=== PATIENT | female | born 1980 | race Caucasian/White ===

== ENCOUNTER 2021-09-03 21:05 | Inpatient (IN) | payer MEDICARE ==
[2021-09-03] MEDS ORDERED: Norepinephrine 8 MG/0.9% NS 250 ML ONE (21:12)
[2021-09-03] MEDS ORDERED: Sodium Bicarb 50 MEQ/50 ML Abboject 8.4% SYRINGE ONE (21:55)
[2021-09-03 22:41] LABS: SARS-CoV-2 NAA Rapid Test Not Detected (NotDetected)
[2021-09-03 23:06] LABS: Actual Bicarbonate (HCO3a) 20.4 mEq/L (22-28); Analyzer IN Cardio ER; Base Excess (BEa) -1.4 mEq/L (-2.0 to +3.0); CO2 Tension 26.2 mmHg (35.0-45.0); Calcium, Ionized (arterial) 0.99 mmol/L (1.12-1.30); Carboxyhemoglobin (COHb) 0.3 gm% (0.0-3.0); Hemoglobin (Hb) 11.6 g/dL (12.0-16.0); O2 Tension (PaO2), arterial 312.8 mmHg (80.0-100.0); Potassium - ABG Lab 3.46 mmol/L (3.70-5.30); pH, Arterial 7.51 (7.35-7.45)
[2021-09-03 23:09] LABS: Puncture Site LBA
[2021-09-03] MEDS ORDERED: Azithromycin 500 MG VIAL ONE ×2 (23:10→23:12)
[2021-09-03] MEDS ORDERED: cefTRIAXone\\ROCEPHIN 2 GM VIAL ONE ×2 (23:10→23:12)
[2021-09-03 23:12] LABS: Acetaminophen Less than 6.0 mcg/mL (10.0-30.0); Alcohol Less than 10 mg/dL (Less than 10); Salicylate Less than 8.0 mg/dL (15.0-30.0)
[2021-09-04] MEDS ORDERED: Lorazepam 2 MG/ML VIAL ONE (01:12)
[2021-09-04] MEDS ORDERED: Morphine 4 MG/ML VIAL SLOW IVP PRN (01:53)
[2021-09-04] MEDS ORDERED: Fentanyl CADD 100 ML IV SCH (02:00)
[2021-09-04] MEDS ORDERED: DISCONTINUE PREVIOUS NARCOTIC PAIN MEDICATIONS AND BENZODIAZEPINES FS SCH (02:00)
[2021-09-04] MEDS ORDERED: fentaNYL Citrate-0.9 % NaCl/PF 100 ML IV SCH (02:00)
[2021-09-04] MEDS ORDERED: Propofol BOLUS 1,000 MG/100 ML VIAL IV PRN (02:00)
[2021-09-04] MEDS ORDERED: Ventilator Sedation Protocol 1 EACH FS SCH (02:00)
[2021-09-04] MEDS ORDERED: Propofol 1,000 MG/100 ML VIAL IV PRN (02:00)
[2021-09-04] MEDS ORDERED: Fentanyl BOLUS 250 ML IVPB PRN (02:00)
[2021-09-04] MEDS ORDERED: Morphine 2 MG/ML VIAL SLOW IVP PRN (02:00)
[2021-09-04] MEDS ORDERED: Lorazepam 2 MG/ML VIAL SLOW IVP PRN (02:00)
[2021-09-04 02:23] LABS: Hemoglobin 11.4 g/dL (12.0-16.0); Mean Corpuscular HGB CONC 31.7 g/dL (32.0-36.0); Mean Corpuscular Hemoglobin 22.7 pg (27.0-31.0); Mean Corpuscular Volume 71.4 fL (78.0-98.0); Mean Platelet Volume 10.3 fL (7.4-10.4); Platelet Count 316 thou/uL (130-400); Red Blood Cell (RBC) Count 5.03 mill/uL (4.20-5.40); White Blood Cell (WBC) Count 14.7 thou/uL (4.8-10.8)
[2021-09-04] MEDS: Sodium Chloride 0.9% 1,000 ML IV SCH ×3 (02:30→21:50)
[2021-09-04 02:47] LABS: #Lymphocytes 0.6 thou/uL (1.20-3.40); #Monocytes 1.1 thou/uL (0.11-0.59); %Eosinophils 0.2 % (0.0-10.0); %Monocytes 7.4 % (0.0-10.0); %Neutrophils 88.3 % (42.0-75.0)
[2021-09-04 02:49] LABS: Lactic Acid 2.8 mmol/L (0.5-2.2)
[2021-09-04 02:50] LABS: Microcytosis SLIGHT = 6-15 cells (100X) (0-5/hpf)
[2021-09-04] MEDS ORDERED: VANCOMYCIN 1.25 GM/250 ML BAG 1.25 GM in Premix Bag 1 BAG IVPB SCH (03:08)
[2021-09-04] MEDS ORDERED: Cefepime 2 GM in Sodium Chloride 0.9% 100 ML IVPB SCH (03:08)
[2021-09-04] MEDS ORDERED: Piperacillin/Tazobactam 3.375 GM in Sodium Chloride 0.9% 100 ML IVPB SCH ×2 (03:15→03:45)
[2021-09-04 03:34] LABS: Lactic Acid 2.8 mmol/L (0.5-2.2)
[2021-09-04 03:39] LABS: ALT (SGPT) 982 U/L (8-55); AST (SGOT) 1305 U/L (5-34); Albumin 3.6 g/dL (3.5-5.0); Alkaline Phosphatase 105 U/L (40-110); Anion Gap 18 mmol/L (10-20); BUN (Urea Nitrogen) 18 mg/dL (7.0-18.7); Bilirubin, Total 0.3 mg/dL (0.2-1.2); Calc. Creatinine Clearance 82 mL/min (70-130); Calcium 8.1 mg/dL (7.8-10.44); Carbon Dioxide 23 mmol/L (22-29); Chloride 106 mmol/L (98-107); Globulin 2.8 g/dL (2.4-3.5); Glucose 165 mg/dL (70-105); Magnesium 2.2 mg/dL (1.6-2.6); Protein, Total 6.4 g/dL (6.0-8.3); Sodium 144 mmol/L (136-145)
[2021-09-04] MEDS ORDERED: Norepinephrine 8 MG/0.9% NS 250 ML IVPB SCH (03:45)
[2021-09-04 03:47] LABS: Potassium 2.9 mmol/L (3.5-5.1)
[2021-09-04] MEDS ORDERED: Electrolyte Replacement Protocol 1 EACH FS SCH (04:15)
[2021-09-04] MEDS ORDERED: Vancomycin HCl 1.5 GM in Sodium Chloride 0.9% 250 ML 300 ML IVPB SCH (04:15)
[2021-09-04 04:49] LABS: Amphetamine Not Detected (NotDetected); Barbiturates Screen Not Detected (NotDetected); Benzodiazepine Screen Detected (NotDetected); Cocaine Metabolite Screen Not Detected (NotDetected); Methadone Not Detected (NotDetected); Methamphetamine Not Detected (NotDetected); Opiate Screen Detected (NotDetected); Oxycodone Screen Not Detected (NotDetected); Phencyclidine (PCP) Not Detected (NotDetected); THC/Cannabinoid Screen Not Detected (NotDetected); Tricyclic Screen Not Detected (NotDetected)
[2021-09-04] MEDS: Potassium Chloride 40 MEQ in Premix Bag 1 BAG IVPB SCH ×2 (05:02→08:53)
[2021-09-04 07:24] LABS: Actual Bicarbonate (HCO3a) 24.3 mEq/L (22-28); Base Excess (BEa) 1.5 mEq/L (-2.0 to +3.0); CO2 Tension 31.9 mmHg (35.0-45.0); Calcium, Ionized (arterial) 1.01 mmol/L (1.12-1.30); Carboxyhemoglobin (COHb) 0.3 gm% (0.0-3.0); O2 Tension (PaO2), arterial 163.8 mmHg (80.0-100.0); Potassium - ABG Lab 2.67 mmol/L (3.70-5.30)
[2021-09-04 07:57] LABS: ALV-art Gradient 81.525 mmHg (0-20); Puncture Site RRA
[2021-09-04] MEDS: Piperacillin/Tazobactam 3.375 GM in Sodium Chloride 0.9% 100 ML IVPB SCH ×2 (08:52→16:07)
[2021-09-04] MEDS ORDERED: FLU VACC QS2021-22(6MOS UP)/PF 60 MCG/0.5 ML SYRINGE IM ONE (09:00)
[2021-09-04] MEDS: Acetaminophen 325 MG TAB PO PRN (13:44)
[2021-09-04] MEDS: Vancomycin 1 GM in Premix Bag 1 BAG IVPB SCH (17:39)
[2021-09-04 20:19] LABS: #Lymphocytes 0.6 thou/uL (1.20-3.40); #Neutrophils 11.5 thou/uL (1.40-6.50); %Basophils 0.1 % (0.0-1.0); %Eosinophils 0.1 % (0.0-10.0); %Lymphocytes 4.7 % (21.0-51.0); %Monocytes 7.3 % (0.0-10.0); %Neutrophils 87.8 % (42.0-75.0); Hemoglobin 8.6 g/dL (12.0-16.0); Mean Corpuscular HGB CONC 30.5 g/dL (32.0-36.0); Mean Corpuscular Hemoglobin 22.1 pg (27.0-31.0); Mean Corpuscular Volume 72.3 fL (78.0-98.0); Platelet Count 245 thou/uL (130-400); RBC Distribution Width 16.8 % (11.5-14.5); Red Blood Cell (RBC) Count 3.89 mill/uL (4.20-5.40); White Blood Cell (WBC) Count 13.1 thou/uL (4.8-10.8)
[2021-09-04 20:40] LABS: Troponin I 0.024 ng/mL (< 0.028)
[2021-09-04 20:49] LABS: ALT (SGPT) 559 U/L (8-55); AST (SGOT) 448 U/L (5-34); Alkaline Phosphatase 61 U/L (40-110); Anion Gap 12 mmol/L (10-20); BUN (Urea Nitrogen) 22 mg/dL (7.0-18.7); Bilirubin, Total 0.3 mg/dL (0.2-1.2); Calc. Creatinine Clearance 88 mL/min (70-130); Calcium 6.7 mg/dL (7.8-10.44); Carbon Dioxide 22 mmol/L (22-29); Chloride 115 mmol/L (98-107); Globulin 2.2 g/dL (2.4-3.5); Glucose 126 mg/dL (70-105); Magnesium 1.7 mg/dL (1.6-2.6); Potassium 3.2 mmol/L (3.5-5.1); Protein, Total 5.2 g/dL (6.0-8.3); Sodium 146 mmol/L (136-145)
[2021-09-04 21:00] LABS: Anisocytosis SLIGHT = 6-15 cells (100X) (0-5/hpf); Elliptocytes SLIGHT = 2-5 cells (100X) (0-1/hpf); MDiff Complete? YES
[2021-09-04] MEDS ORDERED: Azithromycin 500 MG in Sodium Chloride 0.9% 250 ML 250 ML IVPB SCH (21:00)
[2021-09-04] MEDS ORDERED: Magnesium 2 GM/50 ML 2 GM in Premix Bag 1 BAG IVPB SCH (21:30)
[2021-09-04] MEDS: Famotidine/PF 20 mg/2ml Vial SLOW IVP SCH (21:49)
[2021-09-04] MEDS ORDERED: Sodium Chloride 0.9% 500 ML IVPB SCH (23:00)
[2021-09-04] MEDS ORDERED: Potassium Chloride 40 MEQ in Premix Bag 1 BAG IVPB SCH (23:30)
[2021-09-05] MEDS: Piperacillin/Tazobactam 3.375 GM in Sodium Chloride 0.9% 100 ML IVPB SCH ×3 (01:38→16:45)
[2021-09-05] MEDS: Acetaminophen 325 MG TAB PO PRN ×2 (01:39→11:20)
[2021-09-05] MEDS: Vancomycin 1 GM in Premix Bag 1 BAG IVPB SCH ×2 (03:59→16:44)
[2021-09-05 04:36] LABS: Anion Gap 12 mmol/L (10-20); BUN (Urea Nitrogen) 17 mg/dL (7.0-18.7); Calc. Creatinine Clearance 100 mL/min (70-130); Calcium 6.9 mg/dL (7.8-10.44); Carbon Dioxide 21 mmol/L (22-29); Chloride 118 mmol/L (98-107); Glucose 128 mg/dL (70-105); Potassium 3.9 mmol/L (3.5-5.1); Sodium 147 mmol/L (136-145)
[2021-09-05 05:01] LABS: Band 21 % (5-11); Elliptocytes SLIGHT = 2-5 cells (100X) (0-1/hpf); Hemoglobin 8.4 g/dL (12.0-16.0); Lymphocytes 10 % (21-51); MDiff Complete? YES; Mean Corpuscular HGB CONC 29.7 g/dL (32.0-36.0); Mean Corpuscular Hemoglobin 21.6 pg (27.0-31.0); Mean Corpuscular Volume 72.5 fL (78.0-98.0); Mean Platelet Volume 10.5 fL (7.4-10.4); Monocytes 4 % (0-10); Neutrophil 65 % (42-75); Platelet Count 246 thou/uL (130-400); RBC Distribution Width 17.2 % (11.5-14.5); Red Blood Cell (RBC) Count 3.88 mill/uL (4.20-5.40); White Blood Cell (WBC) Count 14.6 thou/uL (4.8-10.8)
[2021-09-05] MEDS ORDERED: Metoprolol Tartrate 5 MG/5 ML VIAL IVP SCH (05:45)
[2021-09-05] MEDS ORDERED: Enoxaparin Sodium 40 MG/0.4 ML SYRINGE SC SCH (05:45)
[2021-09-05] MEDS: Sodium Chloride 0.9% 1,000 ML IV SCH ×3 (05:55→20:05)
[2021-09-05] MEDS: Enoxaparin Sodium 40 MG/0.4 ML SYRINGE SC SCH (06:09)
[2021-09-05] MEDS: Famotidine/PF 20 mg/2ml Vial SLOW IVP SCH ×2 (08:43→20:16)
[2021-09-05 17:19] LABS: Vancomycin, Trough 8.3 ug/mL
[2021-09-06] MEDS: Piperacillin/Tazobactam 3.375 GM in Sodium Chloride 0.9% 100 ML IVPB SCH ×3 (00:44→15:48)
[2021-09-06 03:41] LABS: Mean Corpuscular HGB CONC 28.7 g/dL (32.0-36.0); Mean Corpuscular Hemoglobin 21.2 pg (27.0-31.0); Mean Platelet Volume 10.1 fL (7.4-10.4); Platelet Count 204 thou/uL (130-400); RBC Distribution Width 17.4 % (11.5-14.5); Red Blood Cell (RBC) Count 3.75 mill/uL (4.20-5.40); White Blood Cell (WBC) Count 14.2 thou/uL (4.8-10.8)
[2021-09-06 03:46] LABS: Anion Gap 11 mmol/L (10-20); BUN (Urea Nitrogen) 11 mg/dL (7.0-18.7); Calc. Creatinine Clearance 113 mL/min (70-130); Calcium 7.7 mg/dL (7.8-10.44); Carbon Dioxide 20 mmol/L (22-29); Chloride 117 mmol/L (98-107); Glucose 121 mg/dL (70-105); Sodium 144 mmol/L (136-145)
[2021-09-06 04:24] LABS: Band 12 % (5-11); Eosinophils 1 % (0-10); Hypochromia SLIGHT = 6-15 cells (100X) (0-5/hpf); Lymphocytes 6 % (21-51); MDiff Complete? YES; Microcytosis SLIGHT = 6-15 cells (100X) (0-5/hpf); Monocytes 4 % (0-10); Neutrophil 77 % (42-75)
[2021-09-06] MEDS: Sodium Chloride 0.9% 1,000 ML IV SCH ×2 (04:32→15:48)
[2021-09-06] MEDS: Vancomycin HCl 1.75 GM in Sodium Chloride 0.9% 500 ML IVPB SCH ×2 (05:27→16:47)
[2021-09-06 07:20] LABS: Actual Bicarbonate (HCO3a) 22.5 mEq/L (22-28); Base Excess (BEa) -1.5 mEq/L (-2.0 to +3.0); CO2 Tension 34.7 mmHg (35.0-45.0); Carboxyhemoglobin (COHb) 0.6 gm% (0.0-3.0); Hemoglobin (Hb) 8.7 g/dL (12.0-16.0); Potassium - ABG Lab 3.97 mmol/L (3.70-5.30); pH, Arterial 7.43 (7.35-7.45)
[2021-09-06 07:22] LABS: Puncture Site LRA
[2021-09-06 07:23] LABS: ALV-art Gradient 27.525 mmHg (0-20)
[2021-09-06] MEDS: Famotidine/PF 20 mg/2ml Vial SLOW IVP SCH ×2 (08:44→21:12)
[2021-09-06] MEDS: Enoxaparin Sodium 40 MG/0.4 ML SYRINGE SC SCH (08:44)
[2021-09-06] MEDS ORDERED: Magnevist 469MG/ML 20 ML VIAL ONE (12:30)
[2021-09-06 13:48] VITALS: BMI 24.5
[2021-09-06] MEDS ORDERED: Norepinephrine 8 MG/0.9% NS 250 ML ONE (22:02)
[2021-09-06] MEDS ORDERED: Hydrocortisone Sod Succ/PF 500 mg/4 ml Vial SLOW IVP SCH (23:45)
[2021-09-07 00:10] LABS: Actual Bicarbonate (HCO3a) 22.4 mEq/L (22-28); Base Excess (BEa) -3.3 mEq/L (-2.0 to +3.0); Calcium, Ionized (arterial) 1.16 mmol/L (1.12-1.30); Carboxyhemoglobin (COHb) 0.4 gm% (0.0-3.0); Hemoglobin (Hb) 9.4 g/dL (12.0-16.0); O2 Tension (PaO2), arterial 140.3 mmHg (80.0-100.0); Potassium - ABG Lab 4.46 mmol/L (3.70-5.30); pH, Arterial 7.33 (7.35-7.45)
[2021-09-07 00:11] LABS: Puncture Site LRA
[2021-09-07 00:16] LABS: #Lymphocytes 0.8 thou/uL (1.20-3.40); #Monocytes 0.8 thou/uL (0.11-0.59); #Neutrophils 11.4 thou/uL (1.40-6.50); %Basophils 0.2 % (0.0-1.0); %Eosinophils 0.1 % (0.0-10.0); %Monocytes 6.1 % (0.0-10.0); %Neutrophils 87.7 % (42.0-75.0); Hemoglobin 8.2 g/dL (12.0-16.0); Mean Corpuscular HGB CONC 31.1 g/dL (32.0-36.0); Mean Corpuscular Hemoglobin 22.8 pg (27.0-31.0); Mean Corpuscular Volume 73.1 fL (78.0-98.0); Mean Platelet Volume 9.9 fL (7.4-10.4); Platelet Count 217 thou/uL (130-400); RBC Distribution Width 17.2 % (11.5-14.5); Red Blood Cell (RBC) Count 3.61 mill/uL (4.20-5.40)
[2021-09-07 00:24] LABS: Hemoglobin A1c 5.1 % (4.0-6.0)
[2021-09-07 00:27] LABS: Prothrombin Time 13.4 sec (12.0-14.7)
[2021-09-07 00:28] LABS: PTT 34.5 sec (22.9-36.1)
[2021-09-07] MEDS: Piperacillin/Tazobactam 3.375 GM in Sodium Chloride 0.9% 100 ML IVPB SCH ×2 (00:29→09:33)
[2021-09-07] MEDS: Sodium Chloride 0.9% 1,000 ML IV SCH (00:40)
[2021-09-07 01:00] LABS: ALT (SGPT) 218 U/L (8-55); AST (SGOT) 93 U/L (5-34); Albumin 2.7 g/dL (3.5-5.0); Alkaline Phosphatase 73 U/L (40-110); Anion Gap 11 mmol/L (10-20); BUN (Urea Nitrogen) 10 mg/dL (7.0-18.7); Bilirubin, Direct 0.1 mg/dL (0.1-0.3); Bilirubin, Total 0.3 mg/dL (0.2-1.2); CK (CPK) 128 U/L (29-168); Calc. Creatinine Clearance 125 mL/min (70-130); Calcium 7.9 mg/dL (7.8-10.44); Carbon Dioxide 22 mmol/L (22-29); Chloride 116 mmol/L (98-107); Globulin 2.6 g/dL (2.4-3.5); Glucose 132 mg/dL (70-105); Lipase 23 U/L (8-78); Phosphorus 3.5 mg/dL (2.3-4.7); Potassium 4.4 mmol/L (3.5-5.1); Protein, Total 5.3 g/dL (6.0-8.3); Sodium 145 mmol/L (136-145)
[2021-09-07 01:11] LABS: CKMB 10.5 ng/mL (0-6.6); Troponin I 1.046 ng/mL (< 0.028)
[2021-09-07 01:23] LABS: Bacteria/HPF None Seen HPF (None Seen); Squamous Epithelial None Seen HPF (0-3); WBC/HPF 0-3 HPF (0-3)
[2021-09-07] MEDS: Albuterol Sulfate 2.5 mg/3 ml Neb NEB SCH ×3 (02:17→11:34)
[2021-09-07 02:19] VITALS: BP 83/58
[2021-09-07] MEDS ORDERED: Albumin 25% 25 GM/100 ML BOT IVPB SCH (02:45)
[2021-09-07] MEDS: Sodium Chloride 0.45% 1,000 ML IV SCH ×2 (02:52→09:50)
[2021-09-07 05:25] LABS: Actual Bicarbonate (HCO3a) 22.8 mEq/L (22-28); CO2 Tension 44.7 mmHg (35.0-45.0); Calcium, Ionized (arterial) 1.13 mmol/L (1.12-1.30); Carboxyhemoglobin (COHb) 0.6 gm% (0.0-3.0); Hemoglobin (Hb) 6.9 g/dL (12.0-16.0); Potassium - ABG Lab 4.17 mmol/L (3.70-5.30); pH, Arterial 7.33 (7.35-7.45)
[2021-09-07 05:26] LABS: ALV-art Gradient 36.025 mmHg (0-20); O2 Tension (PaO2), arterial 621.1 mmHg (80.0-100.0); Puncture Site RBA
[2021-09-07 05:44] LABS: Bilirubin Negative (Negative); Blood, Urine Large (Negative); Glucose, Urine (Dipstick) >=1000 mg/dL (Negative); Ketone, Urine Negative (Negative); Leukocyte Negative (Negative); Nitrite Negative (Negative); Protein, Urine (Dipstick) Negative (Neg-Trace); Urobilinogen 0.2 mg/dL (Less than 2); pH, Urine 5.5 (5.0-9.0)
[2021-09-07 05:57] LABS: Clarity Clear (Clear)
[2021-09-07] MEDS ORDERED: Hydrocortisone Sod Succ/PF 100 mg/2 ml Vial IVP SCH (06:00)
[2021-09-07 06:02] LABS: Hemoglobin 6.7 g/dL (12.0-16.0); Mean Corpuscular HGB CONC 29.9 g/dL (32.0-36.0); Mean Corpuscular Hemoglobin 22.2 pg (27.0-31.0); Mean Corpuscular Volume 74.3 fL (78.0-98.0); Platelet Count 151 thou/uL (130-400); RBC Distribution Width 17.3 % (11.5-14.5); Red Blood Cell (RBC) Count 3.01 mill/uL (4.20-5.40); Vancomycin, Trough 13.7 ug/mL; White Blood Cell (WBC) Count 6.1 thou/uL (4.8-10.8)
[2021-09-07 06:05] LABS: INR-International Normal Ratio 1.1; Prothrombin Time 14.5 sec (12.0-14.7)
[2021-09-07 06:06] LABS: PTT 36.9 sec (22.9-36.1)
[2021-09-07 06:11] LABS: Anion Gap 12 mmol/L (10-20); BUN (Urea Nitrogen) 11 mg/dL (7.0-18.7); Calc. Creatinine Clearance 119 mL/min (70-130); Carbon Dioxide 21 mmol/L (22-29); Chloride 122 mmol/L (98-107); Glucose 189 mg/dL (70-105); Potassium 4.2 mmol/L (3.5-5.1); Sodium 151 mmol/L (136-145)
[2021-09-07 06:17] LABS: WBC/HPF 0-3 HPF (0-3)
[2021-09-07 06:18] LABS: Bacteria/HPF 1+ HPF (None Seen); Yeast-Budding Rare HPF (None Seen); Yeast-Hyphae Rare HPF (None Seen)
[2021-09-07 06:30] LABS: CKMB 7.8 ng/mL (0-6.6); Critical Call CKMB RESULT DECREASING; Critical Call Chem Troponin I RESULT DECREASING; Troponin I 0.473 ng/mL (< 0.028)
[2021-09-07 06:31] LABS: ALT (SGPT) 160 U/L (8-55); AST (SGOT) 56 U/L (5-34); Albumin 3.6 g/dL (3.5-5.0); Alkaline Phosphatase 61 U/L (40-110); Anion Gap 9 mmol/L (10-20); BUN (Urea Nitrogen) 11 mg/dL (7.0-18.7); Bilirubin, Direct 0.1 mg/dL (0.1-0.3); Bilirubin, Total 0.3 mg/dL (0.2-1.2); CK (CPK) 86 U/L (29-168); Calc. Creatinine Clearance 119 mL/min (70-130); Calcium 7.8 mg/dL (7.8-10.44); Carbon Dioxide 24 mmol/L (22-29); Chloride 122 mmol/L (98-107); Globulin 1.7 g/dL (2.4-3.5); Glucose 187 mg/dL (70-105); Lipase 19 U/L (8-78); Magnesium 2.1 mg/dL (1.6-2.6); Phosphorus 2.6 mg/dL (2.3-4.7); Potassium 4.3 mmol/L (3.5-5.1); Protein, Total 5.3 g/dL (6.0-8.3); Sodium 151 mmol/L (136-145)
[2021-09-07] MEDS: Vancomycin HCl 1.75 GM in Sodium Chloride 0.9% 500 ML IVPB SCH (06:43)
[2021-09-07] MEDS ORDERED: Magnesium 2 GM/50 ML 2 GM in Premix Bag 1 BAG IVPB SCH (07:00)
[2021-09-07 07:01] LABS: Anisocytosis SLIGHT = 6-15 cells (100X) (0-5/hpf); Band 8 % (5-11); Elliptocytes SLIGHT = 2-5 cells (100X) (0-1/hpf); Hypochromia MODERATE=16-30 cells (100X) (0-5/hpf); Lymphocytes 1 % (21-51); MDiff Complete? YES; Monocytes 1 % (0-10); Neutrophil 90 % (42-75); Platelet Morphology Comment Appears Adequate; Polychromasia SLIGHT = 2-3 cells (100X) (0-2/hpf); Schistocytes SLIGHT = 2-5 cells (100X) (0-1/hpf)
[2021-09-07] MEDS: Famotidine/PF 20 mg/2ml Vial SLOW IVP SCH (09:33)
[2021-09-07] MEDS: Enoxaparin Sodium 40 MG/0.4 ML SYRINGE SC SCH (09:33)
[2021-09-07 10:42] VITALS: TEMP 97.8
[2021-09-07 11:29] LABS: Actual Bicarbonate (HCO3a) 25.3 mEq/L (22-28); Base Excess (BEa) -4.4 mEq/L (-2.0 to +3.0); Calcium, Ionized (arterial) 1.18 mmol/L (1.12-1.30); Carboxyhemoglobin (COHb) 0.2 gm% (0.0-3.0); Hemoglobin (Hb) 7.5 g/dL (12.0-16.0); Potassium - ABG Lab 3.88 mmol/L (3.70-5.30)
[2021-09-07 11:31] LABS: CO2 Tension 82.3 mmHg (35.0-45.0); O2 Tension (PaO2), arterial 551.5 mmHg (80.0-100.0); pH, Arterial 7.11 (7.35-7.45)
[2021-09-07 11:32] LABS: ALV-art Gradient -155.275 mmHg (0-20); Puncture Site RRA
== END 2021-09-07 11:30 | disposition short-term general hospital (02) | DRG 871 ==
LOC: EDBD 21:05 → ERS 21:05 → CCU 21:27
PROVIDERS: ADMIT Student in an Organized Health Care Education/Training Program; ATTEND Hospitalist
PROC: 3E033XZ Introduction of Vasopressor into Peripheral Vein, Percutaneous Approach (ICD-10-PCS; principal; 2021-09-03)
PROC: 5A1945Z Respiratory Ventilation, 24-96 Consecutive Hours (ICD-10-PCS; 2021-09-03)
PROC: 06HY33Z Insertion of Infusion Device into Lower Vein, Percutaneous Approach (ICD-10-PCS; 2021-09-04)
PROC: 0B9J8ZX Drainage of Left Lower Lung Lobe, Via Natural or Artificial Opening Endoscopic, Diagnostic (ICD-10-PCS; 2021-09-07)
PROC: 0B9D8ZX Drainage of Right Middle Lung Lobe, Via Natural or Artificial Opening Endoscopic, Diagnostic (ICD-10-PCS; 2021-09-07)
PROC: 0B9H8ZX Drainage of Lung Lingula, Via Natural or Artificial Opening Endoscopic, Diagnostic (ICD-10-PCS; 2021-09-07)
PROC: 0B9F8ZX Drainage of Right Lower Lung Lobe, Via Natural or Artificial Opening Endoscopic, Diagnostic (ICD-10-PCS; 2021-09-07)
PROC: 03HY32Z Insertion of Monitoring Device into Upper Artery, Percutaneous Approach (ICD-10-PCS; 2021-09-07)
DX: A41.9 Sepsis, unspecified organism (principal); I46.9 Cardiac arrest, cause unspecified; J96.01 Acute respiratory failure with hypoxia; J18.9 Pneumonia, unspecified organism; G93.5 Compression of brain; E87.2 Acidosis; G93.1 Anoxic brain damage, not elsewhere classified; Q79.60 Ehlers-Danlos syndrome, unspecified; R65.20 Severe sepsis without septic shock; Z51.5 Encounter for palliative care; T41.291A Poisoning by other general anesthetics, accidental (unintentional), initial encounter; Z20.822 Contact with and (suspected) exposure to COVID-19; I48.91 Unspecified atrial fibrillation; G43.909 Migraine, unspecified, not intractable, without status migrainosus; F41.9 Anxiety disorder, unspecified; G93.89 Other specified disorders of brain; I95.89 Other hypotension; Z78.1 Physical restraint status; Z98.890 Other specified postprocedural states; Z98.84 Bariatric surgery status; Z79.899 Other long term (current) drug therapy
CPT/HCPCS: 36415; 36416; 36556; 36600; 70450; 70553; 71045; 71275; 74018; 74177; 80048; 80053; 80202; 80306; 80307; 81001; 81015; 82140; 82150; 82248; 82550; 82553; 82805; 83036; 83605; 83690; 83735; 84100; 84484; 85007; 85025; 85027; 85384; 85610; 85730; 87040; 87086; 93005; 93010; 93306; 93970; 94002; 94003; 94640; 95712; 95819; 95957; 96365; 96366; 96368; A9579; J0456; J0696; J1650; J1720; J2060; J2270; J2543; J3370; J3475; J3480; J3490; J7030; J7050; J7611; P9047; S0028; U0002

== ENCOUNTER 2021-09-07 11:30 | Day surgery (SDC) | payer OTHER ==
[2021-09-07 14:04] VITALS: BMI 22.5
[2021-09-07 15:40] LABS: Lactic Acid 1.8 mmol/L (0.5-2.2)
[2021-09-07 15:55] LABS: CKMB 5.4 ng/mL (0-6.6); Troponin I 0.217 ng/mL (< 0.028)
[2021-09-07 16:00] LABS: Hemoglobin A1c 5.9 % (4.0-6.0)
[2021-09-07 16:04] LABS: ALT (SGPT) 140 U/L (8-55); AST (SGOT) 41 U/L (5-34); Albumin 3.3 g/dL (3.5-5.0); Alkaline Phosphatase 62 U/L (40-110); Anion Gap 11 mmol/L (10-20); BUN (Urea Nitrogen) 10 mg/dL (7.0-18.7); Bilirubin, Direct 0.1 mg/dL (0.1-0.3); Bilirubin, Total 0.2 mg/dL (0.2-1.2); CK (CPK) 65 U/L (29-168); Calc. Creatinine Clearance 118 mL/min (70-130); Calcium 7.7 mg/dL (7.8-10.44); Carbon Dioxide 21 mmol/L (22-29); Chloride 121 mmol/L (98-107); Globulin 1.7 g/dL (2.4-3.5); Glucose 170 mg/dL (70-105); Lipase 18 U/L (8-78); Magnesium 2.1 mg/dL (1.6-2.6); Phosphorus 2.2 mg/dL (2.3-4.7); Sodium 149 mmol/L (136-145)
[2021-09-07 16:16] LABS: #Lymphocytes 0.3 thou/uL (1.20-3.40); #Monocytes 0.3 thou/uL (0.11-0.59); #Neutrophils 5.1 thou/uL (1.40-6.50); %Lymphocytes 5.4 % (21.0-51.0); %Monocytes 4.8 % (0.0-10.0); %Neutrophils 89.8 % (42.0-75.0); Mean Corpuscular HGB CONC 29.7 g/dL (32.0-36.0); Mean Corpuscular Hemoglobin 21.8 pg (27.0-31.0); Mean Corpuscular Volume 73.7 fL (78.0-98.0); Mean Platelet Volume 10.4 fL (7.4-10.4); Platelet Count 144 thou/uL (130-400); RBC Distribution Width 17.1 % (11.5-14.5); Red Blood Cell (RBC) Count 2.76 mill/uL (4.20-5.40); White Blood Cell (WBC) Count 5.7 thou/uL (4.8-10.8)
[2021-09-07 16:28] LABS: Prothrombin Time 13.6 sec (12.0-14.7)
[2021-09-07 16:29] LABS: PTT 30.4 sec (22.9-36.1)
[2021-09-07] MEDS ORDERED: Iopamidol 370 76% 100 ML VIAL ONE (16:30)
[2021-09-07] MEDS ORDERED: Refresh Lacri-lube Opth Oint 7 GM TUBE FS SCH (16:45)
[2021-09-07] MEDS ORDERED: Hydrocortisone Sod Succ/PF 500 mg/4 ml Vial SLOW IVP SCH (17:00)
[2021-09-07] MEDS ORDERED: Vasopressin 20 UNIT, Admixture Fee 1 EACH in Sodium Chloride 0.9% 50 ML IV SCH (17:00)
[2021-09-07] MEDS ORDERED: Phenylephrine 40 MG in Sodium Chloride 0.9% 250 ML 250 ML IVPB SCH (17:00)
[2021-09-07] MEDS ORDERED: Piperacillin/Tazobactam 3.375 GM in Sodium Chloride 0.9% 100 ML IVPB SCH (17:00)
[2021-09-07 17:26] LABS: Actual Bicarbonate (HCO3a) 23.7 mEq/L (22-28); Base Excess (BEa) 0.1 mEq/L (-2.0 to +3.0); CO2 Tension 33.2 mmHg (35.0-45.0); Calcium, Ionized (arterial) 1.15 mmol/L (1.12-1.30); Carboxyhemoglobin (COHb) 0.3 gm% (0.0-3.0); Hemoglobin (Hb) 6.3 g/dL (12.0-16.0); Potassium - ABG Lab 3.61 mmol/L (3.70-5.30); pH, Arterial 7.47 (7.35-7.45)
[2021-09-07 17:27] LABS: Puncture Site Arterial Line
[2021-09-07] MEDS: Phytonadione 10 MG/ML AMP SLOW IVP SCH ×2 (17:38→20:12)
[2021-09-07] MEDS: Albuterol Sulfate 2.5 mg/0.5 ml Neb NEB SCH ×2 (18:16→21:38)
[2021-09-07 18:23] LABS: #Lymphocytes 0.4 thou/uL (1.20-3.40); #Monocytes 0.3 thou/uL (0.11-0.59); #Neutrophils 4.4 thou/uL (1.40-6.50); %Lymphocytes 7.6 % (21.0-51.0); %Neutrophils 86.4 % (42.0-75.0); Hemoglobin 5.9 g/dL (12.0-16.0); Mean Corpuscular HGB CONC 29.4 g/dL (32.0-36.0); Mean Corpuscular Hemoglobin 21.5 pg (27.0-31.0); Mean Corpuscular Volume 73.1 fL (78.0-98.0); Mean Platelet Volume 10.4 fL (7.4-10.4); Platelet Count 128 thou/uL (130-400); RBC Distribution Width 17.4 % (11.5-14.5); Red Blood Cell (RBC) Count 2.74 mill/uL (4.20-5.40); White Blood Cell (WBC) Count 5.1 thou/uL (4.8-10.8)
[2021-09-07 18:27] LABS: INR-International Normal Ratio 1.1; Prothrombin Time 13.9 sec (12.0-14.7)
[2021-09-07 18:28] LABS: PTT 33.8 sec (22.9-36.1)
[2021-09-07 18:35] LABS: Lactic Acid 0.9 mmol/L (0.5-2.2)
[2021-09-07 18:44] LABS: CKMB 5.2 ng/mL (0-6.6); Troponin I 0.211 ng/mL (< 0.028)
[2021-09-07 18:54] LABS: ALT (SGPT) 135 U/L (8-55); AST (SGOT) 36 U/L (5-34); Albumin 3.2 g/dL (3.5-5.0); Alkaline Phosphatase 60 U/L (40-110); Anion Gap 14 mmol/L (10-20); BUN (Urea Nitrogen) 10 mg/dL (7.0-18.7); Bilirubin, Direct 0.1 mg/dL (0.1-0.3); Bilirubin, Total 0.2 mg/dL (0.2-1.2); CK (CPK) 58 U/L (29-168); Calc. Creatinine Clearance 118 mL/min (70-130); Calcium 8.3 mg/dL (7.8-10.44); Carbon Dioxide 19 mmol/L (22-29); Chloride 117 mmol/L (98-107); Glucose 155 mg/dL (70-105); Lipase 17 U/L (8-78); Magnesium 2.1 mg/dL (1.6-2.6); Potassium 3.5 mmol/L (3.5-5.1); Protein, Total 5.2 g/dL (6.0-8.3); Sodium 146 mmol/L (136-145)
[2021-09-07 19:03] LABS: Phosphorus 1.8 mg/dL (2.3-4.7)
[2021-09-07] MEDS ORDERED: Potassium Phosphate 20 MMOL in Sodium Chloride 0.9% 250 ML 250 ML IVPB SCH (20:00)
[2021-09-07] MEDS ORDERED: Lactated Ringer's 1,000 ML IV SCH (21:00)
[2021-09-07] MEDS: Piperacillin/Tazobactam 3.375 GM in Sodium Chloride 0.9% 100 ML IVPB SCH (21:16)
[2021-09-07 21:52] LABS: Bacteria/HPF None Seen HPF (None Seen); Squamous Epithelial None Seen HPF (0-3); WBC/HPF None Seen HPF (0-3)
[2021-09-07 21:58] LABS: Yeast-Hyphae 2+ HPF (None Seen)
[2021-09-07 22:00] LABS: Yeast-Budding 3+ HPF (None Seen)
[2021-09-08 00:03] LABS: Bilirubin Negative (Negative); Blood, Urine Trace (Negative); Clarity Clear (Clear); Glucose, Urine (Dipstick) 250 mg/dL (Negative); Ketone, Urine Negative (Negative); Leukocyte Negative (Negative); Nitrite Negative (Negative); Protein, Urine (Dipstick) Negative (Neg-Trace); Specific Gravity, Urine 1.015 (1.005-1.030); Urobilinogen 0.2 mg/dL (Less than 2); pH, Urine 6.5 (5.0-9.0)
[2021-09-08 00:09] LABS: #Lymphocytes 0.7 thou/uL (1.20-3.40); #Monocytes 0.7 thou/uL (0.11-0.59); #Neutrophils 7.1 thou/uL (1.40-6.50); %Basophils 0.5 % (0.0-1.0); %Lymphocytes 8.5 % (21.0-51.0); %Monocytes 7.9 % (0.0-10.0); %Neutrophils 83.1 % (42.0-75.0); Hemoglobin 7.6 g/dL (12.0-16.0); Mean Corpuscular HGB CONC 30.5 g/dL (32.0-36.0); Mean Corpuscular Volume 75.4 fL (78.0-98.0); Mean Platelet Volume 10.9 fL (7.4-10.4); Platelet Count 128 thou/uL (130-400); RBC Distribution Width 18.9 % (11.5-14.5); Red Blood Cell (RBC) Count 3.31 mill/uL (4.20-5.40); White Blood Cell (WBC) Count 8.5 thou/uL (4.8-10.8)
[2021-09-08 00:13] LABS: INR-International Normal Ratio 1.1; Prothrombin Time 13.9 sec (12.0-14.7)
[2021-09-08 00:14] LABS: PTT 31.3 sec (22.9-36.1)
[2021-09-08] MEDS: Hydrocortisone Sod Succ/PF 100 mg/2 ml Vial IVP SCH ×2 (00:18→09:42)
[2021-09-08 00:32] LABS: Actual Bicarbonate (HCO3a) 22.1 mEq/L (22-28); Base Excess (BEa) -0.9 mEq/L (-2.0 to +3.0); CO2 Tension 29.6 mmHg (35.0-45.0); Calcium, Ionized (arterial) 1.13 mmol/L (1.12-1.30); Carboxyhemoglobin (COHb) 0.4 gm% (0.0-3.0); Potassium - ABG Lab 3.58 mmol/L (3.70-5.30); pH, Arterial 7.49 (7.35-7.45)
[2021-09-08 00:33] LABS: O2 Tension (PaO2), arterial 525.3 mmHg (80.0-100.0); Puncture Site LINE
[2021-09-08 00:50] LABS: Lactic Acid 1.1 mmol/L (0.5-2.2)
[2021-09-08 00:55] LABS: CKMB 3.9 ng/mL (0-6.6); Troponin I 0.267 ng/mL (< 0.028)
[2021-09-08 01:04] LABS: ALT (SGPT) 131 U/L (8-55); AST (SGOT) 37 U/L (5-34); Albumin 3.3 g/dL (3.5-5.0); Alkaline Phosphatase 71 U/L (40-110); Anion Gap 15 mmol/L (10-20); BUN (Urea Nitrogen) 10 mg/dL (7.0-18.7); Bilirubin, Direct 0.2 mg/dL (0.1-0.3); Bilirubin, Total 0.5 mg/dL (0.2-1.2); CK (CPK) 54 U/L (29-168); Calc. Creatinine Clearance 118 mL/min (70-130); Calcium 8.5 mg/dL (7.8-10.44); Carbon Dioxide 19 mmol/L (22-29); Chloride 118 mmol/L (98-107); Globulin 2.3 g/dL (2.4-3.5); Glucose 122 mg/dL (70-105); Lipase 14 U/L (8-78); Magnesium 2.1 mg/dL (1.6-2.6); Phosphorus 3.7 mg/dL (2.3-4.7); Potassium 3.9 mmol/L (3.5-5.1); Protein, Total 5.6 g/dL (6.0-8.3); Sodium 148 mmol/L (136-145)
[2021-09-08 02:06] VITALS: TEMP 99.3
[2021-09-08] MEDS: Albuterol Sulfate 2.5 mg/0.5 ml Neb NEB SCH ×3 (02:11→10:43)
[2021-09-08] MEDS ORDERED: Albumin 25% 25 GM/100 ML BOT IVPB SCH (04:15)
[2021-09-08] MEDS: Piperacillin/Tazobactam 3.375 GM in Sodium Chloride 0.9% 100 ML IVPB SCH ×2 (05:08→12:04)
[2021-09-08 06:47] LABS: Actual Bicarbonate (HCO3a) 21.9 mEq/L (22-28); Base Excess (BEa) -1.7 mEq/L (-2.0 to +3.0); CO2 Tension 31.6 mmHg (35.0-45.0); Calcium, Ionized (arterial) 1.14 mmol/L (1.12-1.30); Carboxyhemoglobin (COHb) 0.1 gm% (0.0-3.0); Hemoglobin (Hb) 6.9 g/dL (12.0-16.0); Potassium - ABG Lab 3.26 mmol/L (3.70-5.30); pH, Arterial 7.46 (7.35-7.45)
[2021-09-08 06:50] LABS: O2 Tension (PaO2), arterial 511.2 mmHg (80.0-100.0)
[2021-09-08 06:51] LABS: Puncture Site Arterial Line
[2021-09-08 10:02] LABS: Lactic Acid 0.7 mmol/L (0.5-2.2)
[2021-09-08 10:06] LABS: INR-International Normal Ratio 1.1; Prothrombin Time 14.3 sec (12.0-14.7)
[2021-09-08 10:07] LABS: PTT 30.5 sec (22.9-36.1)
[2021-09-08 10:08] LABS: ALT (SGPT) 99 U/L (8-55); AST (SGOT) 25 U/L (5-34); Albumin 3.9 g/dL (3.5-5.0); Alkaline Phosphatase 55 U/L (40-110); Anion Gap 14 mmol/L (10-20); BUN (Urea Nitrogen) 12 mg/dL (7.0-18.7); Bilirubin, Direct 0.2 mg/dL (0.1-0.3); Bilirubin, Total 0.5 mg/dL (0.2-1.2); CK (CPK) 42 U/L (29-168); Calc. Creatinine Clearance 119 mL/min (70-130); Calcium 8.7 mg/dL (7.8-10.44); Carbon Dioxide 21 mmol/L (22-29); Chloride 116 mmol/L (98-107); Globulin 2.1 g/dL (2.4-3.5); Glucose 147 mg/dL (70-105); Lipase 19 U/L (8-78); Magnesium 2.2 mg/dL (1.6-2.6); Potassium 3.3 mmol/L (3.5-5.1); Sodium 148 mmol/L (136-145)
[2021-09-08 10:13] LABS: CKMB 1.9 ng/mL (0-6.6); Troponin I 0.197 ng/mL (< 0.028)
[2021-09-08 10:26] LABS: Hemoglobin 6.5 g/dL (12.0-16.0); Mean Corpuscular HGB CONC 31.1 g/dL (32.0-36.0); Mean Corpuscular Hemoglobin 23.3 pg (27.0-31.0); Mean Corpuscular Volume 74.8 fL (78.0-98.0); Mean Platelet Volume 10.9 fL (7.4-10.4); Platelet Count 135 thou/uL (130-400); RBC Distribution Width 18.4 % (11.5-14.5); Red Blood Cell (RBC) Count 2.81 mill/uL (4.20-5.40); White Blood Cell (WBC) Count 7.6 thou/uL (4.8-10.8)
[2021-09-08 10:42] VITALS: BP 119/76
[2021-09-08 11:54] LABS: #Basophils 0.1 thou/uL (0.0-0.2); #Lymphocytes 0.5 thou/uL (1.20-3.40); #Monocytes 0.4 thou/uL (0.11-0.59); #Neutrophils 6.7 thou/uL (1.40-6.50); %Basophils 0.8 % (0.0-1.0); %Lymphocytes 6.2 % (21.0-51.0); %Monocytes 4.9 % (0.0-10.0); %Neutrophils 88.1 % (42.0-75.0)
[2021-09-08 12:22] LABS: Hypochromia SLIGHT = 6-15 cells (100X) (0-5/hpf); MDiff Complete? YES; Microcytosis SLIGHT = 6-15 cells (100X) (0-5/hpf); Ovalocytes SLIGHT = 2-5 cells (100X) (0-1/hpf); Platelet Morphology Comment Appears Adequate; Polychromasia SLIGHT = 2-3 cells (100X) (0-2/hpf)
[2021-09-08 13:28] LABS: #Lymphocytes 0.4 thou/uL (1.20-3.40); #Monocytes 0.4 thou/uL (0.11-0.59); #Neutrophils 6.2 thou/uL (1.40-6.50); %Eosinophils 0.1 % (0.0-10.0); %Lymphocytes 5.5 % (21.0-51.0); %Monocytes 5.8 % (0.0-10.0); %Neutrophils 88.7 % (42.0-75.0); Hemoglobin 6.4 g/dL (12.0-16.0); Mean Corpuscular HGB CONC 30.6 g/dL (32.0-36.0); Mean Corpuscular Hemoglobin 22.9 pg (27.0-31.0); Mean Corpuscular Volume 74.8 fL (78.0-98.0); Mean Platelet Volume 11.2 fL (7.4-10.4); Platelet Count 136 thou/uL (130-400); RBC Distribution Width 18.4 % (11.5-14.5); White Blood Cell (WBC) Count 6.9 thou/uL (4.8-10.8)
[2021-09-08 13:33] LABS: ALT (SGPT) 92 U/L (8-55); AST (SGOT) 21 U/L (5-34); Albumin 3.8 g/dL (3.5-5.0); Alkaline Phosphatase 49 U/L (40-110); Anion Gap 12 mmol/L (10-20); BUN (Urea Nitrogen) 13 mg/dL (7.0-18.7); Bilirubin, Direct 0.2 mg/dL (0.1-0.3); Bilirubin, Total 0.4 mg/dL (0.2-1.2); CK (CPK) 51 U/L (29-168); Calc. Creatinine Clearance 126 mL/min (70-130); Calcium 8.4 mg/dL (7.8-10.44); Carbon Dioxide 22 mmol/L (22-29); Chloride 118 mmol/L (98-107); Globulin 1.5 g/dL (2.4-3.5); Glucose 147 mg/dL (70-105); Lipase 21 U/L (8-78); Magnesium 2.1 mg/dL (1.6-2.6); Potassium 3.2 mmol/L (3.5-5.1); Protein, Total 5.3 g/dL (6.0-8.3); Sodium 149 mmol/L (136-145)
[2021-09-08 13:36] LABS: CKMB 1.9 ng/mL (0-6.6); Troponin I 0.153 ng/mL (< 0.028)
[2021-09-08 13:37] LABS: INR-International Normal Ratio 1.1; PTT 31.1 sec (22.9-36.1); Prothrombin Time 14.5 sec (12.0-14.7)
[2021-09-08 13:39] LABS: Lactic Acid 0.7 mmol/L (0.5-2.2)
[2021-09-08 13:45] LABS: Phosphorus 2.6 mg/dL (2.3-4.7)
== END 2021-09-07 11:31 | disposition expired ==
LOC: SJX 11:30 → UNDOADMIN 14:56 → CCU 14:56 → UNDODISIN 09-08 13:07
DX: I46.9 Cardiac arrest, cause unspecified (principal); J98.11 Atelectasis; I34.0 Nonrheumatic mitral (valve) insufficiency; Z52.9 Donor of unspecified organ or tissue
CPT/HCPCS: 36430; 71045; 71260; 74177; 80053; 81015; 82150; 82248; 82550; 82553; 82805; 83036; 83605; 83690; 83735; 84100; 84484; 85025; 85384; 85610; 85730; 86850; 86900; 86901; 87205; 93005; 93010; 93306; 94003; J1720; J2370; J2543; J3430; J3490; J7050; J7120; J7611; P9016; P9047; Q9967